=== PATIENT | female | born 1950 | race Caucasian/White ===

== ENCOUNTER 2017-05-09 06:58 | Emergency (ER) | payer MEDICARE ==
[2017-05-09] MEDS ORDERED: ALBUTEROL SULFATE 2.5MG/0.5ML ONE (07:06)
[2017-05-09] MEDS ORDERED: ALBUTEROL SULFATE 2.5 MG/3 ML ONE (07:06)
[2017-05-09] MEDS ORDERED: SODIUM CHLORIDE FLUSH 10ML SYR IVF ONE (07:30)
[2017-05-09] MEDS ORDERED: methylPREDNISolone SOD SUCC 125 MG/2 ML IVP ONE (07:30)
[2017-05-09] MEDS ORDERED: LEVO25TA4 PO (07:37)
[2017-05-09] MEDS ORDERED: LISI-170 PO (07:37)
[2017-05-09] MEDS ORDERED: AMLO10TA2 PO (07:37)
== END 2017-05-09 07:10 ==
LOC: ED 07:04
DX: R06.02 Shortness of breath (principal); Z53.21 Procedure and treatment not carried out due to patient leaving prior to being seen by health care provider
CPT/HCPCS: 93005

== ENCOUNTER 2017-05-09 07:10 | Inpatient (IN) | payer MEDICARE ==
[~2017-05-09] VITALS: Ht 134.6 cm; Wt 22.5 kg
[2017-05-09] MEDS ORDERED: ALBUTEROL/IPRATROPIUM 2.5MG/0.5MG, 3 ML NPPB ONE (07:30)
[2017-05-09] MEDS ORDERED: SODIUM CHLORIDE 0.9% 1,000ML IVBOLUS ONE (07:30)
[2017-05-09] MEDS ORDERED: SODIUM CHLORIDE FLUSH 10ML SYR IVF ONE (07:30)
[2017-05-09] MEDS ORDERED: LEVO25TA4 PO (07:37)
[2017-05-09] MEDS ORDERED: AMLO10TA2 PO (07:37)
[2017-05-09] MEDS ORDERED: LISI-170 PO (07:37)
[2017-05-09 07:53] LABS: BASOPHILS # (AUTO) 0.01 x10^3/uL (0-0.1); BASOPHILS % (AUTO) 0 % (0-1); EOSINOPHILS # (AUTO) 0.01 x10^3/uL (0-0.4); EOSINOPHILS % (AUTO) 0 % (1-7); LYMPHOCYTES # (AUTO) 1.09 x10^3/uL (1-3.4); LYMPHOCYTES % (AUTO) 17 % (22-44); MD NO; MEAN CORPUSCULAR HEMOGLOBIN 31.8 pg (27.0-34.8); MEAN CORPUSCULAR HGB CONC 33.5 g/dL (32.4-35.8); MEAN CORPUSCULAR VOLUME 94.8 fL (80-100); MEAN PLATELET VOLUME 8.4 fL (7.4-10.4); MONOCYTES % (AUTO) 14 % (2-9); NEUTROPHILS # (AUTO) 4.28 x10^3/uL (1.8-6.8); NEUTROPHILS % (AUTO) 68 % (42-75); PLATELET COUNT 191 x10^3/uL (130-400); RED BLOOD COUNT 5.26 x10^6/uL (3.82-5.3); RED CELL DISTRIBUTION WIDTH 14.1 % (9.6-15.2)
[2017-05-09] MEDS ORDERED: ALBUTEROL SULFATE 2.5 MG/3 ML ONE (07:53)
[2017-05-09 07:58] LABS: ALBUMIN 4.1 g/dL (3.4-5.0); ANION GAP 13 mmol/L (5-15); CALCIUM 9.6 mg/dL (8.5-10.1); CHLORIDE 103 mmol/L (98-107); CREATININE 2.15 mg/dL (0.55-1.02)
[2017-05-09] MEDS ORDERED: ALBUTEROL SULFATE 2.5 MG/3 ML NPPB ONE (08:00)
[2017-05-09 08:01] LABS: TROPONIN I < 0.015 ng/mL (0.000-0.045)
[2017-05-09] MEDS ORDERED: ONDANSETRON 2MG/ML, 2ML IVPush ONE (08:30)
[2017-05-09] MEDS ORDERED: ALBUTEROL SULFATE 2.5 MG/3 ML NPPB PRN (08:30)
[2017-05-09] MEDS: SODIUM CHLORIDE 0.9% 1,000 ML IV SCH ×2 (10:05→21:30)
[2017-05-09] MEDS ORDERED: DOCUSATE 100 MG CAPSULE PO PRN (10:30)
[2017-05-09] MEDS ORDERED: ONDANSETRON ODT 4 MG PO PRN (10:30)
[2017-05-09] MEDS ORDERED: TRAZODONE 50MG TABLET PO PRN (10:30)
[2017-05-09] MEDS ORDERED: ONDANSETRON 2MG/ML, 2ML IVPush PRN (10:30)
[2017-05-09] MEDS ORDERED: BISACODYL 10 MG SUPP PR PRN (10:30)
[2017-05-09] MEDS ORDERED: ACETAMINOPHEN 325 MG TABLET PO PRN (10:30)
[2017-05-09] MEDS ORDERED: ONDANSETRON 2MG/ML, 2ML ONE (10:46)
[2017-05-09] MEDS ORDERED: methylPREDNISolone SOD SUCC 40 MG/ML ONE (10:46)
[2017-05-09] MEDS: methylPREDNISolone SOD SUCC 40 MG/ML IVPush SCH ×3 (10:48→23:11)
[2017-05-09 10:49] LABS: FREE T4 (FREE THYROXINE) 0.82 ng/dL (0.76-1.46); THYROID STIMULATING HORMONE 5.91 mIU/L (0.358-3.740)
[2017-05-09 13:13] VITALS: BP 154/92
[2017-05-09] MEDS ORDERED: ALBUTEROL/IPRATROPIUM 2.5MG/0.5MG, 3 ML NEB SCH (16:00)
[2017-05-09] MEDS ORDERED: GUAIFENESIN 100 MG/5 ML, 5ML UDC ONE ×2 (16:15→16:17)
[2017-05-09] MEDS: GUAIFENESIN 100 MG/5 ML, 10ML UDC PO PRN (16:20)
[2017-05-09 16:35] VITALS: BP 134/78
[2017-05-09 16:54] LABS: MICROSCOPIC NOT IND
[2017-05-09] MEDS ORDERED: ALBUTEROL/IPRATROPIUM 2.5MG/0.5MG, 3 ML ONE (18:32)
[2017-05-09 18:41] VITALS: BP 128/75
[2017-05-09] MEDS: ALBUTEROL/IPRATROPIUM 2.5MG/0.5MG, 3 ML NEB SCH (19:56)
[2017-05-09] MEDS: HEPARIN 5,000 UNITS/ML, 1ML SQ SCH (21:30)
[2017-05-10 02:44] VITALS: BP 156/88
[2017-05-10] MEDS: ALBUTEROL/IPRATROPIUM 2.5MG/0.5MG, 3 ML NEB SCH ×4 (03:07→20:39)
[2017-05-10] MEDS: methylPREDNISolone SOD SUCC 40 MG/ML IVPush SCH ×4 (04:50→22:19)
[2017-05-10 05:59] LABS: ANION GAP 8 mmol/L (5-15); BASOPHILS # (AUTO) 0.01 x10^3/uL (0-0.1); BASOPHILS % (AUTO) 0 % (0-1); CALCIUM 8.4 mg/dL (8.5-10.1); CHLORIDE 111 mmol/L (98-107); EOSINOPHILS % (AUTO) 0 % (1-7); LYMPHOCYTES # (AUTO) 0.52 x10^3/uL (1-3.4); LYMPHOCYTES % (AUTO) 12 % (22-44); MD NO; MEAN CORPUSCULAR HEMOGLOBIN 31.7 pg (27.0-34.8); MEAN CORPUSCULAR HGB CONC 33.5 g/dL (32.4-35.8); MEAN CORPUSCULAR VOLUME 94.8 fL (80-100); MEAN PLATELET VOLUME 8.4 fL (7.4-10.4); MONOCYTES # (AUTO) 0.45 x10^3/uL (0.2-0.8); MONOCYTES % (AUTO) 10 % (2-9); NEUTROPHILS # (AUTO) 3.38 x10^3/uL (1.8-6.8); NEUTROPHILS % (AUTO) 78 % (42-75); PLATELET COUNT 128 x10^3/uL (130-400); RED BLOOD COUNT 3.93 x10^6/uL (3.82-5.3); RED CELL DISTRIBUTION WIDTH 14.1 % (9.6-15.2)
[2017-05-10 06:00] LABS: CREATININE 1.49 mg/dL (0.55-1.02)
[2017-05-10 07:40] VITALS: BP 156/81
[2017-05-10] MEDS: LEVOTHYROXINE 25 MCG TABLET PO SCH (08:57)
[2017-05-10] MEDS: HEPARIN 5,000 UNITS/ML, 1ML SQ SCH ×2 (08:57→21:00)
[2017-05-10] MEDS: SODIUM CHLORIDE 0.9% 1,000 ML IV SCH (08:58)
[2017-05-10] MEDS: GUAIFENESIN 100 MG/5 ML, 10ML UDC PO PRN (11:20)
[2017-05-10 12:47] VITALS: BP 169/78
[2017-05-10] MEDS ORDERED: SODIUM POLYSTYRENE SULFONATE ORAL SUSP PO ONE (13:00)
[2017-05-10 18:42] VITALS: BP 170/80
[2017-05-11 03:11] VITALS: BP 178/87
[2017-05-11] MEDS: GUAIFENESIN 100 MG/5 ML, 10ML UDC PO PRN ×2 (03:46→17:18)
[2017-05-11] MEDS: methylPREDNISolone SOD SUCC 40 MG/ML IVPush SCH ×4 (03:47→23:20)
[2017-05-11 05:28] LABS: BASOPHILS % (AUTO) 0 % (0-1); EOSINOPHILS % (AUTO) 0 % (1-7); LYMPHOCYTES # (AUTO) 0.54 x10^3/uL (1-3.4); LYMPHOCYTES % (AUTO) 7 % (22-44); MD NO; MEAN CORPUSCULAR HEMOGLOBIN 31.9 pg (27.0-34.8); MEAN CORPUSCULAR HGB CONC 33.6 g/dL (32.4-35.8); MEAN CORPUSCULAR VOLUME 95.2 fL (80-100); MEAN PLATELET VOLUME 8.4 fL (7.4-10.4); MONOCYTES # (AUTO) 0.38 x10^3/uL (0.2-0.8); MONOCYTES % (AUTO) 5 % (2-9); NEUTROPHILS # (AUTO) 7.12 x10^3/uL (1.8-6.8); NEUTROPHILS % (AUTO) 89 % (42-75); PLATELET COUNT 132 x10^3/uL (130-400); RED BLOOD COUNT 3.82 x10^6/uL (3.82-5.3); RED CELL DISTRIBUTION WIDTH 14.2 % (9.6-15.2)
[2017-05-11 05:29] LABS: ANION GAP 10 mmol/L (5-15); CALCIUM 7.8 mg/dL (8.5-10.1); CHLORIDE 113 mmol/L (98-107); CREATININE 1.43 mg/dL (0.55-1.02)
[2017-05-11] MEDS: SODIUM CHLORIDE 0.9% 1,000 ML IV SCH ×2 (07:00→16:10)
[2017-05-11 07:37] VITALS: BP 188/78
[2017-05-11] MEDS: ALBUTEROL/IPRATROPIUM 2.5MG/0.5MG, 3 ML NEB SCH ×4 (07:46→20:00)
[2017-05-11] MEDS: HEPARIN 5,000 UNITS/ML, 1ML SQ SCH ×2 (09:00→21:00)
[2017-05-11] MEDS: LEVOTHYROXINE 25 MCG TABLET PO SCH (09:28)
[2017-05-11] MEDS: hydrALAzine 20 MG/ML, 1ML IVPush PRN (09:31)
[2017-05-11 14:07] VITALS: BP 168/88
[2017-05-11 21:23] VITALS: BP 158/78
[2017-05-12] MEDS: ALBUTEROL/IPRATROPIUM 2.5MG/0.5MG, 3 ML NEB SCH ×4 (02:04→20:10)
[2017-05-12 03:59] VITALS: BP 142/86
[2017-05-12] MEDS: SODIUM CHLORIDE 0.9% 1,000 ML IV SCH (04:31)
[2017-05-12] MEDS: methylPREDNISolone SOD SUCC 40 MG/ML IVPush SCH ×4 (04:31→22:54)
[2017-05-12 05:11] LABS: ANION GAP 9 mmol/L (5-15); CALCIUM 7.5 mg/dL (8.5-10.1); CHLORIDE 111 mmol/L (98-107)
[2017-05-12 05:12] LABS: CREATININE 1.25 mg/dL (0.55-1.02)
[2017-05-12 05:20] LABS: BASOPHILS % (AUTO) 0 % (0-1); EOSINOPHILS % (AUTO) 0 % (1-7); LYMPHOCYTES # (AUTO) 0.38 x10^3/uL (1-3.4); LYMPHOCYTES % (AUTO) 6 % (22-44); MD NO; MEAN CORPUSCULAR HEMOGLOBIN 32.5 pg (27.0-34.8); MEAN CORPUSCULAR HGB CONC 34.4 g/dL (32.4-35.8); MEAN CORPUSCULAR VOLUME 94.5 fL (80-100); MEAN PLATELET VOLUME 8.2 fL (7.4-10.4); MONOCYTES % (AUTO) 5 % (2-9); NEUTROPHILS # (AUTO) 5.62 x10^3/uL (1.8-6.8); NEUTROPHILS % (AUTO) 89 % (42-75); PLATELET COUNT 119 x10^3/uL (130-400); RED BLOOD COUNT 3.74 x10^6/uL (3.82-5.3); RED CELL DISTRIBUTION WIDTH 14.5 % (9.6-15.2)
[2017-05-12 06:40] VITALS: BP 173/96
[2017-05-12] MEDS: HEPARIN 5,000 UNITS/ML, 1ML SQ SCH ×2 (08:49→19:53)
[2017-05-12] MEDS: hydrALAzine 20 MG/ML, 1ML IVPush PRN ×2 (08:49→22:55)
[2017-05-12] MEDS: LEVOTHYROXINE 25 MCG TABLET PO SCH (08:49)
[2017-05-12] MEDS: GUAIFENESIN 100 MG/5 ML, 10ML UDC PO PRN (11:43)
[2017-05-12 12:14] VITALS: BP 154/89
[2017-05-12] MEDS: GUAIFENESIN 200 MG TABLET PO SCH ×2 (17:01→21:23)
[2017-05-12 21:24] VITALS: BP 171/84
[2017-05-13 02:08] VITALS: BP 184/76
[2017-05-13] MEDS: ALBUTEROL/IPRATROPIUM 2.5MG/0.5MG, 3 ML NEB SCH ×3 (02:30→15:20)
[2017-05-13] MEDS: methylPREDNISolone SOD SUCC 40 MG/ML IVPush SCH ×3 (05:00→17:30)
[2017-05-13] MEDS: GUAIFENESIN 200 MG TABLET PO SCH ×3 (05:01→16:38)
[2017-05-13 06:07] LABS: BASOPHILS % (AUTO) 0 % (0-1); EOSINOPHILS % (AUTO) 0 % (1-7); LYMPHOCYTES # (AUTO) 0.53 x10^3/uL (1-3.4); LYMPHOCYTES % (AUTO) 7 % (22-44); MD NO; MEAN CORPUSCULAR HEMOGLOBIN 31.9 pg (27.0-34.8); MEAN CORPUSCULAR HGB CONC 33.8 g/dL (32.4-35.8); MEAN CORPUSCULAR VOLUME 94.4 fL (80-100); MEAN PLATELET VOLUME 8.1 fL (7.4-10.4); MONOCYTES # (AUTO) 0.36 x10^3/uL (0.2-0.8); MONOCYTES % (AUTO) 5 % (2-9); NEUTROPHILS # (AUTO) 6.24 x10^3/uL (1.8-6.8); NEUTROPHILS % (AUTO) 88 % (42-75); PLATELET COUNT 152 x10^3/uL (130-400); RED BLOOD COUNT 3.81 x10^6/uL (3.82-5.3); RED CELL DISTRIBUTION WIDTH 13.9 % (9.6-15.2)
[2017-05-13 06:15] LABS: CHLORIDE 112 mmol/L (98-107)
[2017-05-13 06:39] LABS: ANION GAP 11 mmol/L (5-15); CALCIUM 7.5 mg/dL (8.5-10.1); CREATININE 1.24 mg/dL (0.55-1.02)
[2017-05-13 07:35] VITALS: BP 167/103
[2017-05-13] MEDS: LEVOTHYROXINE 25 MCG TABLET PO SCH (08:42)
[2017-05-13] MEDS: HEPARIN 5,000 UNITS/ML, 1ML SQ SCH (08:43)
[2017-05-13] MEDS ORDERED: POTASSIUM CHLORIDE 20 MEQ TAB.ER.PRT PO ONE ×2 (09:00→12:30)
[2017-05-13] MEDS ORDERED: SODIUM CHLORIDE 0.9% 1,000 ML IV SCH (10:05)
[2017-05-13] MEDS ORDERED: ALBU8.5H8 INH (12:00)
[2017-05-13] MEDS ORDERED: HYDR-3343 PO (12:00)
[2017-05-13] MEDS ORDERED: METH4TAB2 PO (12:00)
[2017-05-13 14:26] VITALS: BP 152/95
== END 2017-05-13 17:57 | disposition home health service (06) | DRG 190 ==
LOC: ED 08:26 → EDIP 09:31 → 4WST 12:02 → 4EST 05-11 04:20
PROVIDERS: ADMIT Internal Medicine; ATTEND Internal Medicine
DX: J44.1 Chronic obstructive pulmonary disease with (acute) exacerbation (principal); N17.0 Acute kidney failure with tubular necrosis; E44.0 Moderate protein-calorie malnutrition; Z68.1 Body mass index [BMI] 19.9 or less, adult; E87.5 Hyperkalemia; N18.9 Chronic kidney disease, unspecified; I12.9 Hypertensive chronic kidney disease with stage 1 through stage 4 chronic kidney disease, or unspecified chronic kidney disease; R62.7 Adult failure to thrive; E86.0 Dehydration; Z87.891 Personal history of nicotine dependence; Z88.5 Allergy status to narcotic agent; Z91.040 Latex allergy status
CPT/HCPCS: 36415; 71045; 80048; 81003; 82040; 83880; 84132; 84439; 84443; 84484; 85025; 93306; 94640; J1644; J2405; J7613; J7620; J0360; J2920; J7030

== ENCOUNTER 2017-12-26 09:49 | Inpatient (IN) | payer MEDICARE ==
[~2017-12-26] VITALS: Ht 134.6 cm; Wt 34.4 kg
[~2017-12-26 09:49] MED LIST: ALBU8.5H8 INH; AMLO10TA6 PO; HYDR-3343 PO; LEVO25TA4 PO; LISI-170 PO; METH4TAB2 PO
[2017-12-26] MEDS ORDERED: SERT25TA3 PO (10:17)
[2017-12-26] MEDS ORDERED: METO25TA35 PO (10:17)
[2017-12-26] MEDS ORDERED: HYDR-3343 PO (10:17)
[2017-12-26] MEDS ORDERED: AMLO5TAB7 PO (10:17)
[2017-12-26] MEDS ORDERED: ALLO300T PO (10:17)
[2017-12-26] MEDS ORDERED: MORPHINE SULFATE 4 MG/ML, 1ML ONE (10:19)
[2017-12-26] MEDS ORDERED: SODIUM CHLORIDE 0.9% 1,000ML IVBOLUS ONE ×2 (10:30→13:00)
[2017-12-26] MEDS ORDERED: SODIUM CHLORIDE FLUSH 10ML SYR IVF ONE (10:30)
[2017-12-26] MEDS: MORPHINE SULFATE 4 MG/ML, 1ML IVPush PRN ×2 (10:33→12:33)
[2017-12-26 10:54] LABS: BASOPHILS # (AUTO) 0.01 x10^3/uL (0-0.1); BASOPHILS % (AUTO) 0 % (0-1); EOSINOPHILS % (AUTO) 0 % (1-7); LYMPHOCYTES # (AUTO) 0.46 x10^3/uL (1-3.4); LYMPHOCYTES % (AUTO) 3 % (22-44); MD NO; MEAN CORPUSCULAR HEMOGLOBIN 32.8 pg (27.0-34.8); MEAN CORPUSCULAR HGB CONC 34.7 g/dL (32.4-35.8); MEAN CORPUSCULAR VOLUME 94.7 fL (80-100); MEAN PLATELET VOLUME 7.9 fL (7.4-10.4); MONOCYTES # (AUTO) 1.03 x10^3/uL (0.2-0.8); MONOCYTES % (AUTO) 7 % (2-9); NEUTROPHILS # (AUTO) 12.59 x10^3/uL (1.8-6.8); NEUTROPHILS % (AUTO) 89 % (42-75); PLATELET COUNT 152 x10^3/uL (130-400); RED CELL DISTRIBUTION WIDTH 13.8 % (9.6-15.2)
[2017-12-26 11:06] LABS: ALANINE AMINOTRANSFERASE 25 U/L (12-78); ALBUMIN 3.6 g/dL (3.4-5.0); ANION GAP 8 mmol/L (5-15); CALCIUM 8.2 mg/dL (8.5-10.1); CHLORIDE 110 mmol/L (98-107); CREATININE 1.62 mg/dL (0.55-1.02)
[2017-12-26 11:08] LABS: ALKALINE PHOSPHATASE 117 U/L (45-117); BILIRUBIN,TOTAL 0.5 mg/dL (0.2-1.0); TOTAL PROTEIN 6.7 g/dL (6.4-8.2)
[2017-12-26 11:23] LABS: INTERNATIONAL NORMALIZED RATIO 0.99 (0.93-1.1); PROTHROMBIN TIME 10.2 Seconds (9.6-11.5)
[2017-12-26] MEDS ORDERED: PIPERACILLIN/TAZO/PMX 3.375GM 50 ML ONE (12:03)
[2017-12-26] MEDS ORDERED: PIPERACILLIN/TAZO/PMX 3.375GM 50 ML IV ONE (13:00)
[2017-12-26] MEDS ORDERED: ONDANSETRON 2MG/ML, 2ML IVPush PRN (13:30)
[2017-12-26] MEDS ORDERED: ALBUTEROL SULFATE 2.5 MG/3 ML HHN PRN ×2 (13:30→15:08)
[2017-12-26] MEDS ORDERED: LABETALOL 5MG/ML, 20ML IVPush PRN (13:30)
[2017-12-26] MEDS ORDERED: ONDANSETRON ODT 4 MG PO PRN (13:30)
[2017-12-26] MEDS ORDERED: D5%-LACTATED RINGERS 1,000 ML IV SCH (13:30)
[2017-12-26 14:12] LABS: BASOPHILS % (AUTO) 0 % (0-1); EOSINOPHILS % (AUTO) 0 % (1-7); LYMPHOCYTES # (AUTO) 0.63 x10^3/uL (1-3.4); LYMPHOCYTES % (AUTO) 5 % (22-44); MD NO; MEAN CORPUSCULAR HEMOGLOBIN 33.1 pg (27.0-34.8); MEAN CORPUSCULAR HGB CONC 34.6 g/dL (32.4-35.8); MEAN CORPUSCULAR VOLUME 95.8 fL (80-100); MEAN PLATELET VOLUME 8.1 fL (7.4-10.4); MONOCYTES # (AUTO) 1.18 x10^3/uL (0.2-0.8); MONOCYTES % (AUTO) 9 % (2-9); NEUTROPHILS # (AUTO) 11.52 x10^3/uL (1.8-6.8); NEUTROPHILS % (AUTO) 86 % (42-75); PLATELET COUNT 140 x10^3/uL (130-400); RED BLOOD COUNT 3.26 x10^6/uL (3.82-5.3); RED CELL DISTRIBUTION WIDTH 13.8 % (9.6-15.2)
[2017-12-26] MEDS ORDERED: FENTANYL PF 100 MCG/2ML ONE (14:45)
[2017-12-26] MEDS ORDERED: MIDAZOLAM 1 MG/ML, 5ML ONE (14:45)
[2017-12-26 15:13] VITALS: BP 166/101
[2017-12-26] MEDS: ALBUTEROL SULFATE 2.5 MG/3 ML HHN PRN (15:20)
[2017-12-26] MEDS ORDERED: PIPERACILLIN/TAZO/PMX 3.375GM 50 ML IV SCH (16:30)
[2017-12-26] MEDS ORDERED: VANCOMYCIN PER PHARMACY MC PRN (17:00)
[2017-12-26] MEDS ORDERED: PHARMACOKINETIC MONITORING MC PRN (17:00)
[2017-12-26] MEDS ORDERED: PHARMACOKINETIC CONSULTATION MC ONE (17:00)
[2017-12-26] MEDS ORDERED: PHARMACY MAY ADJ FOR RENAL FX MC PRN (17:30)
[2017-12-26] MEDS ORDERED: VANCOMYCIN 600 MG in SODIUM CHLORIDE 0.9% 100 ML IV ONE (17:30)
[2017-12-26] MEDS: MEROPENEM 1 GM in SODIUM CHLORIDE 0.9% 100 ML IV ONE ×2 (18:00→20:30)
[2017-12-26 18:18] LABS: CULTURE INDICATED? NO; MICROSCOPIC NOT IND
[2017-12-26 19:10] VITALS: BP 147/79
[2017-12-26] MEDS: ALBUTEROL SULFATE 2.5 MG/3 ML NPPB SCH (20:00)
[2017-12-26 20:05] VITALS: BP 146/93
[2017-12-26] MEDS: METOPROLOL TARTRATE 25 MG TABLET PO SCH (20:18)
[2017-12-26] MEDS ORDERED: PIPERACILLIN/TAZO/PMX 2.25GM 50 ML IVPB SCH (20:30)
[2017-12-26] MEDS ORDERED: SODIUM CHLORIDE 0.9%, 500ML IVBOLUS ONE (21:00)
[2017-12-27 01:11] VITALS: BP 144/87
[2017-12-27 01:27] LABS: ALANINE AMINOTRANSFERASE 21 U/L (12-78); ALBUMIN 3.2 g/dL (3.4-5.0); ANION GAP 11 mmol/L (5-15); CALCIUM 7.9 mg/dL (8.5-10.1); CHLORIDE 112 mmol/L (98-107); CREATININE 1.56 mg/dL (0.55-1.02)
[2017-12-27 01:29] LABS: ALKALINE PHOSPHATASE 90 U/L (45-117); BILIRUBIN,TOTAL 0.6 mg/dL (0.2-1.0); TOTAL PROTEIN 6.3 g/dL (6.4-8.2)
[2017-12-27] MEDS ORDERED: FUROSEMIDE 20 MG/2 ML IV ONE (01:30)
[2017-12-27] MEDS ORDERED: FUROSEMIDE 20 MG/2 ML ONE (01:43)
[2017-12-27] MEDS: ALBUTEROL SULFATE 2.5 MG/3 ML NPPB SCH ×5 (03:01→20:50)
[2017-12-27] MEDS: MEROPENEM 500 MG in SODIUM CHLORIDE 0.9% 100 ML IV SCH ×2 (05:47→17:20)
[2017-12-27] MEDS ORDERED: MAGNESIUM SULFATE PMX 2GM/50ML 50 ML IV ONE ×2 (07:00)
[2017-12-27 08:21] LABS: MEAN CORPUSCULAR HEMOGLOBIN 32.3 pg (27.0-34.8); MEAN CORPUSCULAR VOLUME 95.1 fL (80-100); MEAN PLATELET VOLUME 8.4 fL (7.4-10.4); PLATELET COUNT 175 x10^3/uL (130-400); RED BLOOD COUNT 3.16 x10^6/uL (3.82-5.3); RED CELL DISTRIBUTION WIDTH 13.6 % (9.6-15.2)
[2017-12-27 08:37] VITALS: BP 136/76
[2017-12-27] MEDS: METOPROLOL TARTRATE 25 MG TABLET PO SCH (08:44)
[2017-12-27 08:48] LABS: BASOPHILS # (AUTO) 0.04 x10^3/uL (0-0.1); BASOPHILS % (AUTO) 0 % (0-1); EOSINOPHILS # (AUTO) 0.06 x10^3/uL (0-0.4); EOSINOPHILS % (AUTO) 1 % (1-7); LYMPHOCYTES % (AUTO) 10 % (22-44); MD NO; MONOCYTES # (AUTO) 1.38 x10^3/uL (0.2-0.8); MONOCYTES % (AUTO) 11 % (2-9); NEUTROPHILS # (AUTO) 9.59 x10^3/uL (1.8-6.8); NEUTROPHILS % (AUTO) 78 % (42-75)
[2017-12-27] MEDS ORDERED: LEVOTHYROXINE 25 MCG TABLET PO SCH (09:00)
[2017-12-27] MEDS: MORPHINE SULFATE 4 MG/ML, 1ML IV PRN ×2 (13:11→17:20)
[2017-12-27 15:30] VITALS: BP 188/102
[2017-12-27 16:14] LABS: CLOSTRIDIUM DIFFICILE ANTIGEN NEGATIVE; CLOSTRIDIUM DIFFICILE TOXIN NEGATIVE (Negative)
[2017-12-27 21:03] VITALS: BP 109/60
[2017-12-28 01:34] VITALS: BP 98/53
[2017-12-28] MEDS: LEVOTHYROXINE 25 MCG TABLET PO SCH (05:06)
[2017-12-28] MEDS: MEROPENEM 500 MG in SODIUM CHLORIDE 0.9% 100 ML IV SCH ×2 (05:06→17:21)
[2017-12-28 05:34] LABS: BASOPHILS # (AUTO) 0.01 x10^3/uL (0-0.1); BASOPHILS % (AUTO) 0 % (0-1); EOSINOPHILS # (AUTO) 0.12 x10^3/uL (0-0.4); EOSINOPHILS % (AUTO) 1 % (1-7); LYMPHOCYTES # (AUTO) 1.18 x10^3/uL (1-3.4); LYMPHOCYTES % (AUTO) 13 % (22-44); MD NO; MEAN CORPUSCULAR HGB CONC 34.4 g/dL (32.4-35.8); MEAN CORPUSCULAR VOLUME 95.9 fL (80-100); MEAN PLATELET VOLUME 8.2 fL (7.4-10.4); MONOCYTES # (AUTO) 0.79 x10^3/uL (0.2-0.8); MONOCYTES % (AUTO) 9 % (2-9); NEUTROPHILS # (AUTO) 7.07 x10^3/uL (1.8-6.8); NEUTROPHILS % (AUTO) 77 % (42-75); PLATELET COUNT 119 x10^3/uL (130-400); RED BLOOD COUNT 2.77 x10^6/uL (3.82-5.3); RED CELL DISTRIBUTION WIDTH 14.1 % (9.6-15.2)
[2017-12-28 05:52] LABS: CHLORIDE 105 mmol/L (98-107)
[2017-12-28 05:59] LABS: ALANINE AMINOTRANSFERASE 19 U/L (12-78); ALKALINE PHOSPHATASE 79 U/L (45-117); ANION GAP 9 mmol/L (5-15); BILIRUBIN,TOTAL 0.4 mg/dL (0.2-1.0); CALCIUM 8.2 mg/dL (8.5-10.1); CREATININE 1.98 mg/dL (0.55-1.02); TOTAL PROTEIN 5.8 g/dL (6.4-8.2)
[2017-12-28 06:52] VITALS: BP 132/68
[2017-12-28] MEDS: SODIUM CHLORIDE 0.9% 1,000 ML IV SCH ×2 (08:00→16:44)
[2017-12-28] MEDS: ALLOPURINOL 100 MG TABLET PO SCH (08:59)
[2017-12-28] MEDS: METOPROLOL TARTRATE 25 MG TABLET PO SCH (08:59)
[2017-12-28 12:01] VITALS: BP 163/85
[2017-12-28] MEDS: ALBUTEROL SULFATE 2.5 MG/3 ML HHN PRN (12:16)
[2017-12-28 16:15] LABS: ALBUMIN 2.8 g/dL (3.4-5.0); ANION GAP 8 mmol/L (5-15); CALCIUM 7.7 mg/dL (8.5-10.1); CHLORIDE 113 mmol/L (98-107); CREATININE 1.88 mg/dL (0.55-1.02)
[2017-12-28] MEDS: ALBUTEROL/IPRATROPIUM 2.5MG/0.5MG, 3 ML NPPB SCH ×2 (16:30→20:09)
[2017-12-28] MEDS: SODIUM CHLORIDE 0.45% 1,000 ML IV SCH (17:21)
[2017-12-28] MEDS: BUDESONIDE 0.5 MG/2 ML INHA INH SCH (20:09)
[2017-12-28 21:02] VITALS: BP 163/81
[2017-12-29 00:42] VITALS: BP 159/83
[2017-12-29] MEDS: SODIUM CHLORIDE 0.45% 1,000 ML IV SCH ×3 (02:15→18:15)
[2017-12-29 05:00] LABS: BASOPHILS # (AUTO) 0.01 x10^3/uL (0-0.1); BASOPHILS % (AUTO) 0 % (0-1); EOSINOPHILS % (AUTO) 2 % (1-7); LYMPHOCYTES # (AUTO) 0.67 x10^3/uL (1-3.4); LYMPHOCYTES % (AUTO) 13 % (22-44); MD NO; MEAN CORPUSCULAR HEMOGLOBIN 32.9 pg (27.0-34.8); MEAN CORPUSCULAR HGB CONC 34.2 g/dL (32.4-35.8); MEAN CORPUSCULAR VOLUME 96.2 fL (80-100); MEAN PLATELET VOLUME 8.3 fL (7.4-10.4); MONOCYTES # (AUTO) 0.53 x10^3/uL (0.2-0.8); MONOCYTES % (AUTO) 10 % (2-9); NEUTROPHILS # (AUTO) 4.01 x10^3/uL (1.8-6.8); NEUTROPHILS % (AUTO) 75 % (42-75); PLATELET COUNT 121 x10^3/uL (130-400); RED BLOOD COUNT 3.06 x10^6/uL (3.82-5.3); RED CELL DISTRIBUTION WIDTH 13.6 % (9.6-15.2)
[2017-12-29 05:10] LABS: ALANINE AMINOTRANSFERASE 21 U/L (12-78); ALBUMIN 2.8 g/dL (3.4-5.0); ANION GAP 11 mmol/L (5-15); CALCIUM 8.2 mg/dL (8.5-10.1); CHLORIDE 109 mmol/L (98-107)
[2017-12-29 05:13] LABS: ALKALINE PHOSPHATASE 84 U/L (45-117); BILIRUBIN,TOTAL 0.3 mg/dL (0.2-1.0); CREATININE 1.78 mg/dL (0.55-1.02); TOTAL PROTEIN 6.1 g/dL (6.4-8.2)
[2017-12-29] MEDS: LEVOTHYROXINE 25 MCG TABLET PO SCH (05:22)
[2017-12-29] MEDS: MEROPENEM 500 MG in SODIUM CHLORIDE 0.9% 100 ML IV SCH ×2 (05:22→18:15)
[2017-12-29 06:52] VITALS: BP 164/84
[2017-12-29] MEDS ORDERED: ALBUTEROL SULFATE 2.5 MG/3 ML NPPB PRN (07:00)
[2017-12-29] MEDS ORDERED: MAGNESIUM SULFATE PMX 2GM/50ML 50 ML IV ONE (08:00)
[2017-12-29] MEDS: BUDESONIDE 0.5 MG/2 ML INHA INH SCH ×2 (08:13→20:07)
[2017-12-29] MEDS: ALBUTEROL/IPRATROPIUM 2.5MG/0.5MG, 3 ML NPPB SCH ×3 (08:13→20:07)
[2017-12-29] MEDS: ALLOPURINOL 100 MG TABLET PO SCH (08:22)
[2017-12-29] MEDS: METOPROLOL TARTRATE 25 MG TABLET PO SCH (08:22)
[2017-12-29 12:03] VITALS: BP 181/93
[2017-12-29 14:00] VITALS: BP 162/93
[2017-12-29 19:45] VITALS: BP 166/89
[2017-12-30] VITALS (7 sets, daily range): BP systolic 131–193; BP diastolic 77–112
[2017-12-30] MEDS: ALBUTEROL SULFATE 2.5 MG/3 ML HHN PRN (02:13)
[2017-12-30] MEDS: SODIUM CHLORIDE 0.45% 1,000 ML IV SCH ×2 (02:56→11:03)
[2017-12-30 05:22] LABS: ALBUMIN 2.7 g/dL (3.4-5.0); ANION GAP 8 mmol/L (5-15); CALCIUM 8.2 mg/dL (8.5-10.1); CHLORIDE 111 mmol/L (98-107); CREATININE 1.47 mg/dL (0.55-1.02)
[2017-12-30 05:46] LABS: BASOPHILS # (AUTO) 0.02 x10^3/uL (0-0.1); BASOPHILS % (AUTO) 0 % (0-1); EOSINOPHILS # (AUTO) 0.11 x10^3/uL (0-0.4); EOSINOPHILS % (AUTO) 1 % (1-7); LYMPHOCYTES # (AUTO) 0.81 x10^3/uL (1-3.4); LYMPHOCYTES % (AUTO) 10 % (22-44); MD SCAN; MEAN CORPUSCULAR HEMOGLOBIN 32.9 pg (27.0-34.8); MEAN CORPUSCULAR HGB CONC 34.6 g/dL (32.4-35.8); MEAN CORPUSCULAR VOLUME 95.2 fL (80-100); MEAN PLATELET VOLUME 8.3 fL (7.4-10.4); MONOCYTES # (AUTO) 1.04 x10^3/uL (0.2-0.8); MONOCYTES % (AUTO) 13 % (2-9); NEUTROPHILS # (AUTO) 6.05 x10^3/uL (1.8-6.8); NEUTROPHILS % (AUTO) 75 % (42-75); PLATELET COUNT 142 x10^3/uL (130-400); RED BLOOD COUNT 3.14 x10^6/uL (3.82-5.3); RED CELL DISTRIBUTION WIDTH 13.4 % (9.6-15.2)
[2017-12-30] MEDS: MEROPENEM 500 MG in SODIUM CHLORIDE 0.9% 100 ML IV SCH ×2 (06:08→17:39)
[2017-12-30] MEDS: LEVOTHYROXINE 25 MCG TABLET PO SCH (06:09)
[2017-12-30] MEDS: ALBUTEROL/IPRATROPIUM 2.5MG/0.5MG, 3 ML NPPB SCH ×3 (07:30→20:25)
[2017-12-30] MEDS: ALLOPURINOL 100 MG TABLET PO SCH (08:03)
[2017-12-30] MEDS: METOPROLOL TARTRATE 25 MG TABLET PO SCH (08:03)
[2017-12-30] MEDS: AMLODIPINE 5 MG TABLET PO SCH ×2 (09:42→20:05)
[2017-12-30] MEDS: LABETALOL 5MG/ML, 20ML IVPush PRN ×2 (13:36→20:46)
[2017-12-30] MEDS: BUDESONIDE 0.5 MG/2 ML INHA INH SCH ×2 (13:40→20:26)
[2017-12-30] MEDS: METOPROLOL TARTRATE 50 MG TABLET PO SCH (20:05)
[2017-12-31 02:08] VITALS: BP 171/101
[2017-12-31] MEDS: ALBUTEROL/IPRATROPIUM 2.5MG/0.5MG, 3 ML NPPB SCH ×3 (02:24→15:35)
[2017-12-31 03:00] VITALS: BP 138/82
[2017-12-31 05:04] LABS: BASOPHILS # (AUTO) 0.02 x10^3/uL (0-0.1); BASOPHILS % (AUTO) 0 % (0-1); EOSINOPHILS # (AUTO) 0.15 x10^3/uL (0-0.4); EOSINOPHILS % (AUTO) 2 % (1-7); LYMPHOCYTES # (AUTO) 0.97 x10^3/uL (1-3.4); LYMPHOCYTES % (AUTO) 13 % (22-44); MD NO; MEAN CORPUSCULAR HEMOGLOBIN 33.1 pg (27.0-34.8); MEAN CORPUSCULAR HGB CONC 34.6 g/dL (32.4-35.8); MEAN CORPUSCULAR VOLUME 95.5 fL (80-100); MEAN PLATELET VOLUME 7.3 fL (7.4-10.4); MONOCYTES # (AUTO) 1.14 x10^3/uL (0.2-0.8); MONOCYTES % (AUTO) 15 % (2-9); NEUTROPHILS # (AUTO) 5.35 x10^3/uL (1.8-6.8); NEUTROPHILS % (AUTO) 70 % (42-75); PLATELET COUNT 157 x10^3/uL (130-400); RED BLOOD COUNT 2.79 x10^6/uL (3.82-5.3); RED CELL DISTRIBUTION WIDTH 13.8 % (9.6-15.2)
[2017-12-31 05:15] LABS: ALBUMIN 2.5 g/dL (3.4-5.0); ANION GAP 9 mmol/L (5-15); CALCIUM 8.3 mg/dL (8.5-10.1); CHLORIDE 110 mmol/L (98-107); CREATININE 1.28 mg/dL (0.55-1.02)
[2017-12-31] MEDS: MEROPENEM 500 MG in SODIUM CHLORIDE 0.9% 100 ML IV SCH (05:57)
[2017-12-31] MEDS: LEVOTHYROXINE 25 MCG TABLET PO SCH (05:57)
[2017-12-31 06:58] VITALS: BP 158/73
[2017-12-31] MEDS: METOPROLOL TARTRATE 50 MG TABLET PO SCH (09:06)
[2017-12-31] MEDS: ALLOPURINOL 100 MG TABLET PO SCH (09:06)
[2017-12-31] MEDS: AMLODIPINE 5 MG TABLET PO SCH (09:06)
[2017-12-31] MEDS: BUDESONIDE 0.5 MG/2 ML INHA INH SCH (10:20)
[2017-12-31] MEDS ORDERED: AMLO5TAB7 PO (10:56)
[2017-12-31] MEDS ORDERED: METR500T PO (10:56)
[2017-12-31] MEDS ORDERED: METO50TA82 PO (10:56)
[2017-12-31] MEDS ORDERED: BUDE0.5A INH (10:56)
[2017-12-31] MEDS ORDERED: CIPR500T87 PO (10:56)
[2017-12-31] MEDS ORDERED: MAGNESIUM SULFATE PMX 2GM/50ML 50 ML IV ONE ×2 (11:00)
[2017-12-31] MEDS ORDERED: MAGNESIUM SULFATE PMX 4GM/100M 100 ML IVPB ONE (11:30)
[2017-12-31 13:25] VITALS: BP 108/68
[2017-12-31] MEDS ORDERED: SODIUM CHLORIDE 0.45% 1,000 ML IV SCH (17:00)
== END 2017-12-31 17:22 | disposition home health service (06) | DRG 871 ==
LOC: ED 11:46 → EDIP 12:09 → 3NW 12:56 → 5SO 20:22 → 3NE 12-29 13:43
PROVIDERS: ADMIT Hospitalist; ATTEND Hospitalist
PROC: 0DBN8ZX Excision of Sigmoid Colon, Via Natural or Artificial Opening Endoscopic, Diagnostic (ICD-10-PCS; principal; 2017-12-26 16:00)
DX: A41.9 Sepsis, unspecified organism (principal); N17.0 Acute kidney failure with tubular necrosis; K55.9 Vascular disorder of intestine, unspecified; K63.3 Ulcer of intestine; D62 Acute posthemorrhagic anemia; K62.5 Hemorrhage of anus and rectum; K63.5 Polyp of colon; E03.9 Hypothyroidism, unspecified; E16.2 Hypoglycemia, unspecified; E78.5 Hyperlipidemia, unspecified; F12.90 Cannabis use, unspecified, uncomplicated; I13.10 Hypertensive heart and chronic kidney disease without heart failure, with stage 1 through stage 4 chronic kidney disease, or unspecified chronic kidney disease; J44.9 Chronic obstructive pulmonary disease, unspecified; M10.9 Gout, unspecified; N18.3 Chronic kidney disease, stage 3 (moderate); Z80.0 Family history of malignant neoplasm of digestive organs; Z87.891 Personal history of nicotine dependence; Z99.81 Dependence on supplemental oxygen
CPT/HCPCS: 36415; 74022; 74174; 76700; 80048; 80053; 81003; 82040; 82150; 83605; 83615; 83690; 83735; 84100; 84439; 85014; 85018; 85025; 85610; 85730; 86850; 86900; 87040; 87046; 87324; 88305; 90656; 93005; 93306; 94640; 96361; 96374; 99152; 99153; G0378; J2185; J2250; J2543; J3010; J3370; J7613; J7620; J7626; Q0162; J1940; J3475; J7030; J7040; J7121

== ENCOUNTER 2019-10-03 12:39 | Inpatient (IN) | payer MEDICARE ==
[~2019-10-03] VITALS: Ht 121.9 cm; Wt 31.7 kg
[~2019-10-03 12:39] MED LIST changes: +ALLO300T PO; +AMLO-150 PO; -AMLO10TA6 PO; +AMLO10TA8 PO; +BUDE0.5A INH; +CEFD300C37 PO; +CIPR500T87 PO; +INSU100I11 SQ-INSULIN; +IPRA3AMP30 NPPB; +METO25TA35 PO; +METO50TA82 PO; +METR500T PO; +PANT40TA6 PO; +PRED5TAB PO; +SENN-177 NG; +SERT25TA3 PO
--- NOTE | 2019-10-03 13:54 | NUR ---
dr beck spoke with dav rn at [facility] / [phone]
[2019-10-03 14:07] LABS: BASOPHILS # (AUTO) 0.02 x10^3/uL (0-0.1); BASOPHILS % (AUTO) 0 % (0-1); EOSINOPHILS # (AUTO) 0.08 x10^3/uL (0-0.4); EOSINOPHILS % (AUTO) 1 % (1-7); LYMPHOCYTES # (AUTO) 1.27 x10^3/uL (1-3.4); LYMPHOCYTES % (AUTO) 20 % (22-44); MD NO; MEAN CORPUSCULAR HEMOGLOBIN 32.3 pg (27.0-34.8); MEAN CORPUSCULAR HGB CONC 34.1 g/dL (32.4-35.8); MEAN PLATELET VOLUME 8.3 fL (7.4-10.4); MONOCYTES # (AUTO) 0.59 x10^3/uL (0.2-0.8); MONOCYTES % (AUTO) 9 % (2-9); NEUTROPHILS # (AUTO) 4.39 x10^3/uL (1.8-6.8); NEUTROPHILS % (AUTO) 69 % (42-75); PLATELET COUNT 154 x10^3/uL (130-400); RED BLOOD COUNT 4.41 x10^6/uL (3.82-5.3); RED CELL DISTRIBUTION WIDTH 13.9 % (9.6-15.2)
[2019-10-03 14:17] LABS: ALANINE AMINOTRANSFERASE 30 U/L (12-78); ALBUMIN 3.9 g/dL (3.4-5.0); ANION GAP 8 mmol/L (5-15); CALCIUM 9.2 mg/dL (8.5-10.1); CHLORIDE 112 mmol/L (98-107)
[2019-10-03 14:21] LABS: ALKALINE PHOSPHATASE 97 U/L (45-117); BILIRUBIN,TOTAL 0.4 mg/dL (0.2-1.0); CREATINE KINASE, TOTAL 318 U/L (26-192); TOTAL PROTEIN 6.9 g/dL (6.4-8.2)
--- NOTE | 2019-10-03 15:03 | NUR ---
UA COLLECTED WITH ALEXUS ADAIR VIA SC. UA SENT TO LAB.
[2019-10-03 15:16] LABS: MICROSCOPIC AUTO
[2019-10-03] MEDS: HEPARIN 5,000 UNITS/ML, 1ML SQ SCH (16:30)
[2019-10-03] MEDS ORDERED: PROMETHAZINE 25 MG/ML, 1ML IM PRN (16:30)
[2019-10-03] MEDS ORDERED: ONDANSETRON 2MG/ML, 2ML IVPush PRN (16:30)
[2019-10-03] MEDS ORDERED: SODIUM CHLORIDE 0.9% 1,000 ML IV SCH (16:30)
--- NOTE | 2019-10-03 17:15 | NUR ---
JEREMY GALARZA (SON) [phone] SUYAPA BRYSON (BROTHER) [phone]
[2019-10-03 18:08] VITALS: BP 168/101
[2019-10-03 19:55] VITALS: BP 145/91
[2019-10-03] MEDS: AMLODIPINE 5 MG TABLET PO SCH (21:00)
[2019-10-03] MEDS: SODIUM CHLORIDE 0.9% 1,000 ML IV SCH (22:34)
[2019-10-04] VITALS (9 sets, daily range): BP systolic 133–195; BP diastolic 79–132
[2019-10-04] MEDS: HEPARIN 5,000 UNITS/ML, 1ML SQ SCH ×3 (00:30→16:38)
[2019-10-04] MEDS: LORazepam 2 MG/ML, 1ML IVPush PRN ×2 (02:15→06:18)
[2019-10-04] MEDS: SODIUM CHLORIDE 0.9% 1,000 ML IV SCH (05:44)
[2019-10-04] MEDS: PANTOPRAZOLE 40MG TABLET PO SCH (05:46)
[2019-10-04] MEDS: AMLODIPINE 5 MG TABLET PO SCH ×2 (08:13→21:00)
[2019-10-04] MEDS: hydrALAzine 20 MG/ML, 1ML IVPush PRN ×3 (08:13→21:15)
[2019-10-04] MEDS: LEVOTHYROXINE 25 MCG TABLET PO SCH (08:14)
[2019-10-04] MEDS: METOPROLOL TARTRATE 50 MG TAB PO SCH ×2 (08:57→16:42)
[2019-10-04] MEDS ORDERED: HALOPERIDOL 5 MG/ML IM PRN (09:00)
[2019-10-04 10:07] LABS: MEAN CORPUSCULAR HEMOGLOBIN 31.3 pg (27.0-34.8); MEAN CORPUSCULAR HGB CONC 32.4 g/dL (32.4-35.8); MEAN PLATELET VOLUME 8.6 fL (7.4-10.4); PLATELET COUNT 230 x10^3/uL (130-400); RED BLOOD COUNT 4.36 x10^6/uL (3.82-5.3); RED CELL DISTRIBUTION WIDTH 13.8 % (9.6-15.2)
[2019-10-04 10:19] LABS: ALANINE AMINOTRANSFERASE 26 U/L (12-78); ALBUMIN 3.8 g/dL (3.4-5.0); ALKALINE PHOSPHATASE 94 U/L (45-117); BILIRUBIN,TOTAL 0.6 mg/dL (0.2-1.0); CALCIUM 9.4 mg/dL (8.5-10.1); CREATININE 1.53 mg/dL (0.55-1.02); TOTAL PROTEIN 6.6 g/dL (6.4-8.2)
[2019-10-04 10:25] LABS: BASOPHILS # (AUTO) 0.07 x10^3/uL (0-0.1); BASOPHILS % (AUTO) 0 % (0-1); EOSINOPHILS # (AUTO) 0.09 x10^3/uL (0-0.4); EOSINOPHILS % (AUTO) 1 % (1-7); LYMPHOCYTES % (AUTO) 14 % (22-44); MD SCAN; MONOCYTES # (AUTO) 1.08 x10^3/uL (0.2-0.8); MONOCYTES % (AUTO) 7 % (2-9); NEUTROPHILS # (AUTO) 12.81 x10^3/uL (1.8-6.8); NEUTROPHILS % (AUTO) 79 % (42-75)
[2019-10-04 10:56] LABS: ANION GAP 12 mmol/L (5-15); CHLORIDE 120 mmol/L (98-107)
[2019-10-04] MEDS ORDERED: POTASSIUM CHLORIDE 10 MEQ in D5%-0.45% NACL 1,000 ML IV SCH (13:00)
[2019-10-04] MEDS: D5%-0.45% NACL 1,000 ML IV SCH (14:49)
[2019-10-05] VITALS (7 sets, daily range): BP systolic 124–192; BP diastolic 67–140
[2019-10-05] MEDS: HEPARIN 5,000 UNITS/ML, 1ML SQ SCH ×3 (00:30→16:23)
[2019-10-05] MEDS: METOPROLOL TARTRATE 50 MG TAB PO SCH ×3 (01:00→17:27)
[2019-10-05] MEDS: D5%-0.45% NACL 1,000 ML IV SCH ×2 (01:35→08:10)
[2019-10-05] MEDS: PANTOPRAZOLE 40MG TABLET PO SCH (05:58)
[2019-10-05 06:01] LABS: MEAN CORPUSCULAR HEMOGLOBIN 32.2 pg (27.0-34.8); MEAN CORPUSCULAR HGB CONC 33.7 g/dL (32.4-35.8); MEAN PLATELET VOLUME 8.5 fL (7.4-10.4); PLATELET COUNT 205 x10^3/uL (130-400); RED BLOOD COUNT 4.13 x10^6/uL (3.82-5.3); RED CELL DISTRIBUTION WIDTH 14.1 % (9.6-15.2)
[2019-10-05 06:39] LABS: BASOPHILS # (AUTO) 0.01 x10^3/uL (0-0.1); BASOPHILS % (AUTO) 0 % (0-1); EOSINOPHILS # (AUTO) 0.01 x10^3/uL (0-0.4); EOSINOPHILS % (AUTO) 0 % (1-7); LYMPHOCYTES # (AUTO) 1.38 x10^3/uL (1-3.4); LYMPHOCYTES % (AUTO) 11 % (22-44); MD SCAN; MONOCYTES # (AUTO) 1.73 x10^3/uL (0.2-0.8); MONOCYTES % (AUTO) 14 % (2-9); NEUTROPHILS # (AUTO) 9.43 x10^3/uL (1.8-6.8); NEUTROPHILS % (AUTO) 75 % (42-75)
[2019-10-05 07:00] LABS: ALBUMIN 3.2 g/dL (3.4-5.0); ANION GAP 6 mmol/L (5-15); CALCIUM 8.4 mg/dL (8.5-10.1); CHLORIDE 117 mmol/L (98-107)
[2019-10-05 07:05] LABS: ALANINE AMINOTRANSFERASE 24 U/L (12-78); ALKALINE PHOSPHATASE 78 U/L (45-117); BILIRUBIN,TOTAL 0.4 mg/dL (0.2-1.0); CREATININE 1.64 mg/dL (0.55-1.02); TOTAL PROTEIN 6.2 g/dL (6.4-8.2)
[2019-10-05] MEDS: LACTATED RINGERS 1,000 ML IV SCH ×2 (09:04→16:24)
[2019-10-05] MEDS: AMLODIPINE 5 MG TABLET PO SCH ×2 (09:09→20:08)
[2019-10-05] MEDS: LEVOTHYROXINE 25 MCG TABLET PO SCH (09:10)
[2019-10-05] MEDS: hydrALAzine 20 MG/ML, 1ML IVPush PRN ×2 (17:28→22:32)
[2019-10-05] MEDS: LABETALOL 5MG/ML, 20ML IVPush PRN ×2 (20:09→22:33)
[2019-10-06] MEDS: HEPARIN 5,000 UNITS/ML, 1ML SQ SCH ×3 (00:05→16:30)
[2019-10-06 00:57] VITALS: BP 168/74
[2019-10-06] MEDS: METOPROLOL TARTRATE 50 MG TAB PO SCH ×3 (00:57→21:15)
[2019-10-06] MEDS: PANTOPRAZOLE 40MG TABLET PO SCH (05:59)
[2019-10-06] MEDS: LEVOTHYROXINE 25 MCG TABLET PO SCH (05:59)
[2019-10-06 07:06] LABS: MEAN CORPUSCULAR HEMOGLOBIN 31.6 pg (27.0-34.8); MEAN CORPUSCULAR HGB CONC 32.7 g/dL (32.4-35.8); MEAN PLATELET VOLUME 8.5 fL (7.4-10.4); PLATELET COUNT 225 x10^3/uL (130-400); RED BLOOD COUNT 5.26 x10^6/uL (3.82-5.3); RED CELL DISTRIBUTION WIDTH 14.3 % (9.6-15.2)
[2019-10-06 07:17] LABS: ALBUMIN 3.5 g/dL (3.4-5.0); ANION GAP 9 mmol/L (5-15); CALCIUM 9.1 mg/dL (8.5-10.1); CHLORIDE 114 mmol/L (98-107)
[2019-10-06 07:21] LABS: ALANINE AMINOTRANSFERASE 29 U/L (12-78); ALKALINE PHOSPHATASE 85 U/L (45-117); BILIRUBIN,TOTAL 0.7 mg/dL (0.2-1.0); CREATININE 1.23 mg/dL (0.55-1.02); TOTAL PROTEIN 6.6 g/dL (6.4-8.2)
[2019-10-06 07:34] LABS: BASOPHILS # (AUTO) 0.03 x10^3/uL (0-0.1); BASOPHILS % (AUTO) 0 % (0-1); EOSINOPHILS # (AUTO) 0.02 x10^3/uL (0-0.4); EOSINOPHILS % (AUTO) 0 % (1-7); LYMPHOCYTES # (AUTO) 1.15 x10^3/uL (1-3.4); LYMPHOCYTES % (AUTO) 8 % (22-44); MD SCAN; MONOCYTES # (AUTO) 0.59 x10^3/uL (0.2-0.8); MONOCYTES % (AUTO) 4 % (2-9); NEUTROPHILS # (AUTO) 12.47 x10^3/uL (1.8-6.8); NEUTROPHILS % (AUTO) 88 % (42-75)
[2019-10-06 08:30] VITALS: BP 179/94
[2019-10-06] MEDS: AMLODIPINE 5 MG TABLET PO SCH ×2 (11:18→21:15)
[2019-10-06 13:28] VITALS: BP 151/83
[2019-10-06 19:50] VITALS: BP 146/93
[2019-10-07] MEDS: HEPARIN 5,000 UNITS/ML, 1ML SQ SCH ×3 (00:16→15:21)
[2019-10-07 01:40] VITALS: BP 157/85
[2019-10-07] MEDS: LEVOTHYROXINE 25 MCG TABLET PO SCH (06:12)
[2019-10-07] MEDS: PANTOPRAZOLE 40MG TABLET PO SCH (06:13)
[2019-10-07 08:26] VITALS: BP 136/91
[2019-10-07] MEDS: METOPROLOL TARTRATE 50 MG TAB PO SCH ×2 (08:56→20:36)
[2019-10-07] MEDS: AMLODIPINE 5 MG TABLET PO SCH ×2 (08:57→20:36)
[2019-10-07 13:20] VITALS: BP 162/84
[2019-10-07 19:42] VITALS: BP 170/89
[2019-10-08] MEDS: HEPARIN 5,000 UNITS/ML, 1ML SQ SCH ×5 (00:30→16:58)
[2019-10-08 02:13] VITALS: BP 160/97
[2019-10-08] MEDS: PANTOPRAZOLE 40MG TABLET PO SCH (06:27)
[2019-10-08] MEDS: LEVOTHYROXINE 25 MCG TABLET PO SCH (06:28)
[2019-10-08 07:01] VITALS: BP 183/97
[2019-10-08] MEDS: AMLODIPINE 5 MG TABLET PO SCH ×2 (07:55→21:09)
[2019-10-08] MEDS: METOPROLOL TARTRATE 50 MG TAB PO SCH ×2 (07:55→21:09)
[2019-10-08 10:35] VITALS: BP 155/95
[2019-10-08 12:48] VITALS: BP 154/86
[2019-10-08 16:00] VITALS: BP 157/108
[2019-10-08] MEDS: ALBUTEROL-IPRATROPIUM MDI INH INH SCH ×2 (16:58→22:07)
[2019-10-08 19:26] VITALS: BP 151/83
[2019-10-09 00:07] VITALS: BP 148/79
[2019-10-09] MEDS: HEPARIN 5,000 UNITS/ML, 1ML SQ SCH ×3 (00:24→16:30)
[2019-10-09] MEDS ORDERED: ALBUTEROL/IPRATROPIUM 2.5MG/0.5MG, 3 ML NPPB PRN (03:30)
[2019-10-09] MEDS: ALBUTEROL-IPRATROPIUM MDI INH INH PRN (04:12)
[2019-10-09] MEDS: PANTOPRAZOLE 40MG TABLET PO SCH (06:32)
[2019-10-09] MEDS: LEVOTHYROXINE 25 MCG TABLET PO SCH (06:32)
[2019-10-09] MEDS: ALBUTEROL-IPRATROPIUM MDI INH INH SCH (06:33)
[2019-10-09 06:47] VITALS: BP 150/94
[2019-10-09] MEDS: AMLODIPINE 5 MG TABLET PO SCH ×2 (08:28→21:09)
[2019-10-09] MEDS: METOPROLOL TARTRATE 50 MG TAB PO SCH ×2 (08:28→21:08)
[2019-10-09] MEDS ORDERED: ALBUTEROL/IPRATROPIUM 2.5MG/0.5MG, 3 ML NPPB SCH (11:00)
[2019-10-09] MEDS ORDERED: BUDESONIDE 0.5 MG/2 ML INHA INH SCH (11:00)
[2019-10-09 13:09] VITALS: BP 144/70
[2019-10-09] MEDS: FLUTICASONE/VILANTEROL 100-25MCG/INH INH SCH (14:02)
[2019-10-09 16:53] VITALS: BP 159/91
[2019-10-09 21:21] VITALS: BP 137/61
[2019-10-09] MEDS: ACETAMINOPHEN 325 MG TABLET PO PRN (21:24)
[2019-10-10] MEDS: HEPARIN 5,000 UNITS/ML, 1ML SQ SCH ×3 (00:30→16:04)
[2019-10-10 00:37] VITALS: BP 132/77
[2019-10-10] MEDS: PANTOPRAZOLE 40MG TABLET PO SCH (06:36)
[2019-10-10] MEDS: LEVOTHYROXINE 25 MCG TABLET PO SCH (06:36)
[2019-10-10 07:08] VITALS: BP 146/81
[2019-10-10] MEDS: METOPROLOL TARTRATE 50 MG TAB PO SCH ×2 (08:53→21:44)
[2019-10-10] MEDS: AMLODIPINE 5 MG TABLET PO SCH ×2 (08:53→21:44)
[2019-10-10] MEDS: FLUTICASONE/VILANTEROL 100-25MCG/INH INH SCH (08:57)
[2019-10-10 12:56] VITALS: BP 126/73
[2019-10-10] MEDS: ALBUTEROL-IPRATROPIUM MDI INH INH PRN ×2 (15:31→21:57)
[2019-10-10 18:49] VITALS: BP 128/69
[2019-10-10 21:39] VITALS: BP 144/85
[2019-10-11] MEDS: HEPARIN 5,000 UNITS/ML, 1ML SQ SCH ×3 (00:30→16:25)
[2019-10-11 01:22] VITALS: BP 133/69
[2019-10-11] MEDS: PANTOPRAZOLE 40MG TABLET PO SCH (05:28)
[2019-10-11] MEDS: LEVOTHYROXINE 25 MCG TABLET PO SCH (05:28)
[2019-10-11] MEDS: ALBUTEROL-IPRATROPIUM MDI INH INH PRN ×2 (05:29→22:45)
[2019-10-11] MEDS: ACETAMINOPHEN 325 MG TABLET PO PRN ×2 (06:12→15:17)
[2019-10-11 06:50] VITALS: BP 127/81
[2019-10-11] MEDS: FLUTICASONE/VILANTEROL 100-25MCG/INH INH SCH (07:30)
[2019-10-11] MEDS: METOPROLOL TARTRATE 50 MG TAB PO SCH ×2 (07:30→22:39)
[2019-10-11] MEDS: AMLODIPINE 5 MG TABLET PO SCH ×2 (07:30→22:40)
[2019-10-11 12:54] VITALS: BP 145/79
[2019-10-11] MEDS ORDERED: HYDROcodone/APAP 5/325 TABLET ONE (16:22)
[2019-10-11] MEDS: HYDROcodone/APAP 5/325 TABLET PO PRN ×2 (16:25→22:44)
[2019-10-11] MEDS ORDERED: CYCLOBENZAPRINE 10 MG TABLET PO PRN (16:30)
[2019-10-11 19:13] VITALS: BP 128/78
[2019-10-11 22:36] VITALS: BP 165/91
[2019-10-12] MEDS: HEPARIN 5,000 UNITS/ML, 1ML SQ SCH ×4 (00:30→23:27)
[2019-10-12 00:40] VITALS: BP 131/70
[2019-10-12] MEDS: ASPIRIN 81 MG TABLET CHEW PO SCH (06:09)
[2019-10-12] MEDS: PANTOPRAZOLE 40MG TABLET PO SCH (06:09)
[2019-10-12] MEDS: LEVOTHYROXINE 25 MCG TABLET PO SCH (06:09)
[2019-10-12 07:28] VITALS: BP 152/78
[2019-10-12] MEDS: AMLODIPINE 5 MG TABLET PO SCH ×2 (07:33→19:54)
[2019-10-12] MEDS: METOPROLOL TARTRATE 50 MG TAB PO SCH ×2 (07:34→19:54)
[2019-10-12] MEDS: FLUTICASONE/VILANTEROL 100-25MCG/INH INH SCH (07:34)
[2019-10-12] MEDS: HYDROcodone/APAP 5/325 TABLET PO PRN ×2 (11:18→19:55)
[2019-10-12 13:13] VITALS: BP 117/66
[2019-10-12] MEDS: ALBUTEROL-IPRATROPIUM MDI INH INH PRN (15:55)
[2019-10-12 19:46] VITALS: BP 119/66
[2019-10-13 00:39] VITALS: BP 130/70
[2019-10-13] MEDS: LEVOTHYROXINE 25 MCG TABLET PO SCH (05:49)
[2019-10-13] MEDS: PANTOPRAZOLE 40MG TABLET PO SCH (05:49)
[2019-10-13] MEDS: ASPIRIN 81 MG TABLET CHEW PO SCH (05:49)
[2019-10-13 07:36] VITALS: BP 133/80
[2019-10-13] MEDS: HEPARIN 5,000 UNITS/ML, 1ML SQ SCH ×2 (08:30→16:30)
[2019-10-13 08:55] LABS: BASOPHILS # (AUTO) 0.05 x10^3/uL (0-0.1); BASOPHILS % (AUTO) 1 % (0-1); EOSINOPHILS # (AUTO) 0.26 x10^3/uL (0-0.4); EOSINOPHILS % (AUTO) 3 % (1-7); LYMPHOCYTES % (AUTO) 24 % (22-44); MD NO; MEAN CORPUSCULAR HEMOGLOBIN 31.8 pg (27.0-34.8); MEAN CORPUSCULAR HGB CONC 32.9 g/dL (32.4-35.8); MEAN PLATELET VOLUME 8.3 fL (7.4-10.4); MONOCYTES # (AUTO) 0.88 x10^3/uL (0.2-0.8); MONOCYTES % (AUTO) 9 % (2-9); NEUTROPHILS # (AUTO) 5.88 x10^3/uL (1.8-6.8); NEUTROPHILS % (AUTO) 64 % (42-75); PLATELET COUNT 288 x10^3/uL (130-400); RED BLOOD COUNT 4.45 x10^6/uL (3.82-5.3); RED CELL DISTRIBUTION WIDTH 13.4 % (9.6-15.2)
[2019-10-13 09:08] LABS: ALANINE AMINOTRANSFERASE 20 U/L (12-78); ALBUMIN 3.5 g/dL (3.4-5.0); ANION GAP 9 mmol/L (5-15); CALCIUM 9.3 mg/dL (8.5-10.1); CHLORIDE 104 mmol/L (98-107); CREATININE 1.42 mg/dL (0.55-1.02)
[2019-10-13 09:10] LABS: ALKALINE PHOSPHATASE 77 U/L (45-117); BILIRUBIN,TOTAL 0.3 mg/dL (0.2-1.0); TOTAL PROTEIN 7.1 g/dL (6.4-8.2)
[2019-10-13] MEDS: AMLODIPINE 5 MG TABLET PO SCH (09:53)
[2019-10-13] MEDS: METOPROLOL TARTRATE 50 MG TAB PO SCH (09:53)
[2019-10-13] MEDS: HYDROcodone/APAP 5/325 TABLET PO PRN ×2 (10:04→19:31)
[2019-10-13] MEDS: FLUTICASONE/VILANTEROL 100-25MCG/INH INH SCH (10:07)
[2019-10-13 14:05] VITALS: BP 138/89
== END 2019-10-13 21:18 | disposition home health service (06) | DRG 682 ==
LOC: ED 15:12 → EDIP 15:28 → 3N 17:38
PROVIDERS: ADMIT Internal Medicine; ATTEND Internal Medicine
PROC: 0T9B70Z Drainage of Bladder with Drainage Device, Via Natural or Artificial Opening (ICD-10-PCS; principal; 2019-10-03)
DX: N17.9 Acute kidney failure, unspecified (principal); G93.41 Metabolic encephalopathy; D68.69 Other thrombophilia; E87.0 Hyperosmolality and hypernatremia; E87.2 Acidosis; I13.0 Hypertensive heart and chronic kidney disease with heart failure and stage 1 through stage 4 chronic kidney disease, or unspecified chronic kidney disease; I50.32 Chronic diastolic (congestive) heart failure; R64 Cachexia; Z66 Do not resuscitate; E03.9 Hypothyroidism, unspecified; E78.5 Hyperlipidemia, unspecified; E86.0 Dehydration; I48.91 Unspecified atrial fibrillation; J44.9 Chronic obstructive pulmonary disease, unspecified; N18.3 Chronic kidney disease, stage 3 (moderate); Z51.5 Encounter for palliative care; Z87.01 Personal history of pneumonia (recurrent); Z87.19 Personal history of other diseases of the digestive system; Z88.5 Allergy status to narcotic agent; Z91.040 Latex allergy status; Z68.21 Body mass index [BMI] 21.0-21.9, adult; Z03.818 Encounter for observation for suspected exposure to other biological agents ruled out
CPT/HCPCS: 36415; 70450; 71045; 80053; 81001; 82550; 82607; 83880; 84443; 85025; 86480; 87040; 87635; 93005; G0378; J1644; J0360; J2060; J7030; J7120